=== PATIENT | female | born 2005 | race Caucasian/White ===

== ENCOUNTER 2025-06-11 14:23 | Emergency (ER) | payer MEDICAID ==
[~2025-06-11] VITALS: Ht 160 cm; Wt 50.0 kg
[2025-06-11 15:17] LABS: BASOPHILS % 0.5 % (0.0-2.0); EOSINOPHILS % 1.7 % (0.0-5.0); HEMATOCRIT. 38.4 % (36.0-48.0); HEMOGLOBIN. 13.2 g/dL (12.0-16.0); LYMPHOCYTES % 22.7 % (20.0-50.0); MEAN PLATELET VOLUME 9.0 fl (7.4-10.4); MONOCYTES % 13.1 % (2.0-8.0); NEUTROPHILS % 62.0 % (40.0-76.0); PLATELET 261 x1000/uL (130-400); RED BLOOD CELL COUNT 4.19 mill/uL (4.2-5.4); RED CELL DISTRIBUTION WIDTH 13.8 % (11.6-14.6)
[2025-06-11 15:21] LABS: CREATININE 0.7 mg/dL (0.6-1.0); UREA NITROGEN BLOOD 9 mg/dL (9-23)
[2025-06-11 15:56] LABS: HCG SCREEN NEGATIVE
[2025-06-11] MEDS: IOHEXOL-300 100 ML BOTTLE ONE (16:51)
[2025-06-11] MEDS: LIDOCAINE HCL 1% 20ML VIAL INFIL ONE (17:00)
[2025-06-11 19:07] VITALS: O2SAT 97
[2025-06-11] MEDS: MIDAZOLAM HCL 2 MG/2 ML VIAL IM ONE (19:07)
[2025-06-11] MEDS ORDERED: AMOX1TAB16 MT (19:54)
[2025-06-11 20:26] VITALS: BP 128/73; PULSE 87; RESP 24; TEMP 36.8; O2SAT 97
== END 2025-06-11 20:51 | disposition home or self-care (01) ==
LOC: ER 14:23
DX: L02.01 Cutaneous abscess of face (principal)
CPT/HCPCS: 99285; 70487; 80048; 84703; 85025; 36415; 96372; Q9967; J2003; J2250

== ENCOUNTER 2025-09-02 15:09 | Emergency (ER) | payer MEDICAID ==
[~2025-09-02] VITALS: Ht 162.6 cm; Wt 54.0 kg
[~2025-09-02 15:09] MED LIST: AMOX1TAB16 MT
[2025-09-02 15:12] VITALS: BP 122/85; PULSE 94; RESP 18; TEMP 36.9; O2SAT 100
== END 2025-09-02 16:06 | disposition home or self-care (01) ==
LOC: ER 15:09
DX: F19.10 Other psychoactive substance abuse, uncomplicated (principal)
CPT/HCPCS: 99283